=== PATIENT | female | born 1985 | race African-American/Black ===

== ENCOUNTER 2016-11-27 10:30 | Day surgery (SDC) | payer OTHER ==
[2016-11-27 11:03] VITALS: BMI 28.2
[2016-11-27 11:11] LABS: BASOPHIL 0.6 % (0-2.0); EOSINOPHIL 0.8 % (0-4.5); MCH 31.6 pg (25.7-33.7); MCHC 33.1 g/dl (32.0-36.0); MEAN CELL VOLUME 95.6 fl (80-96); MEAN PLT VOLUME 9.1 fl (7.5-11.1); NEUTROPHILS 61.6 % (42.8-82.8); PLATELET COUNT 184 K/MM3 (134-434); RDW 13.4 % (11.6-15.6); WHITE BLOOD COUNT 5.3 K/mm3 (4.0-10.0)
[2016-11-27 11:33] LABS: INR 1.14 (0.82-1.09); PROTHROMBIN TIME (PATIENT) 12.6 SEC (9.98-11.88)
[2016-11-27] MEDS ORDERED: HYDROmorphone *PCA* 10MG/50ML DISP.SYRIN PCA ONE (15:47)
[2016-11-27] MEDS ORDERED: LEUCOVORIN IM ONE (19:15)
--- NOTE | 2016-11-27 21:38 | PN ---
Progress Note (short form) - Note Progress Note: 31 yo P0 with at EGA 7w4d found to have a cervical ectopic . Pt is being treated with IM MTX/leucovorin. She is also s/p uterine artery embolization by interventional radiology. Pt received Luecovorin injection today Last Vital Signs Temp Pulse Resp BP Pulse Ox 97.9 F 90 20 121/76 100 11/27/16 18:31 11/27/16 18:31 11/27/16 18:31 11/27/16 18:31 11/27/16 17:00 Lungs: CTA b/l Abdom: soft, NT Groin: IR site with dressing clean, dry, intact Ext: normal pulses b/l Pelvic: no vag bleeding Imp: Patient is doing well. 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 Plan to d/c home tomorrow in stable MTX again injection tomorrow.
[2016-11-28] MEDS ORDERED: ONDANSETRON 4 MG/2 ML VIAL IVPUSH PRN (00:38)
[2016-11-28] MEDS ORDERED: SODIUM CHLORIDE 1,000 ML IV SCH (00:45)
[2016-11-28] MEDS: HYDROmorphone *PCA* 10MG/50ML DISP.SYRIN PCA SCH ×2 (01:41→05:38)
[2016-11-28] MEDS ORDERED: ACETAMINOPHEN 325 MG TABLET (FP) PO PRN (08:54)
[2016-11-28] MEDS ORDERED: IBUPROFEN 600 MG TABLET (FP) PO PRN (08:54)
[2016-11-28 09:50] VITALS: BP 135/66; PULSE 60; TEMP 98
[2016-11-28] MEDS ORDERED: METHOTREXATE SODIUM/PF 25 MG/ML VIAL IM ONE (13:30)
--- NOTE | 2016-11-28 14:31 | PN ---
Progress Note (SOAP) - Subjective Chief Complaint: Cramps and light spotting History of Present Illness: S/p uterine artery embolization for cervical ectopic - Current Medications Current Medications: Active Medications Acetaminophen (Tylenol -) 650 mg PO Q4H PRN PRN Reason: PAIN Diphenhydramine HCl (Benadryl Injection -) 12.5 mg IVPUSH Q4H PRN Sodium Chloride (Normal Saline -) 1,000 mls @ 75 mls/hr IV ASDIR FLYNN Last Admin: 11/28/16 01:41 Dose: Not Given Ibuprofen (Motrin -) 600 mg PO Q6H PRN PRN Reason: PAIN - Objective Vital Signs: Vital Signs Temperature 98 F 11/28/16 09:49 Pulse Rate 60 11/28/16 09:52 Respiratory Rate 20 11/28/16 09:52 Blood Pressure 135/66 11/28/16 09:52 O2 Sat by Pulse Oximetry (%) 98 11/28/16 13:51 Constitutional: Yes: Well Nourished, No Distress, Calm Eyes: Yes: WNL, Conjunctiva Clear HENT: Yes: WNL, Atraumatic, Normocephalic Neck: Yes: WNL, Supple, Trachea Midline Cardiovascular: Yes: WNL, Regular Rate and Rhythm Respiratory: Yes: WNL, Regular, CTA Bilaterally Gastrointestinal: Yes: WNL, Normal Bowel Sounds, Soft Genitourinary: Yes: Other (spotting) Musculoskeletal: Yes: WNL Extremities: Yes: WNL Peripheral Pulses WNL: Yes Edema: No Integumentary: Yes: WNL, Other (rt groin dressing clean, dry, intact) Wound/Incision: Yes: Clean/Dry Neurological: Yes: WNL, Alert, Oriented ...Motor Strength: Yes: WNL Psychiatric: Yes: WNL, Alert, Oriented Labs Lab Results: CBC, BMP 11/27/16 10:42 Assessment/Plan Doing well after embolization. Will give planned dose of MTX today. Discharge to home. Instructions reviewed. F/u tomorrow with Dr. Palma and me next week.
== END 2016-11-28 15:24 | disposition home or self-care (01) ==
LOC: JASUSAT 10:30 → J8W 17:45 → JASUSAT 11-28 15:24
PROVIDERS: ATTEND Obstetrics & Gynecology
PROC: 04LE3DT Occlusion of Right Uterine Artery with Intraluminal Device, Percutaneous Approach (ICD-10-PCS; 2016-11-27)
PROC: 04LF3DU Occlusion of Left Uterine Artery with Intraluminal Device, Percutaneous Approach (ICD-10-PCS; principal; 2016-11-27 14:45)
DX: O00.80 Other ectopic pregnancy without intrauterine pregnancy (principal); Z3A.01 Less than 8 weeks gestation of pregnancy
CPT/HCPCS: 36415; 37243; 76937-TC; 85025; 85610; 94760; C1760; C1769; C1887; C1894; J9260

== ENCOUNTER 2016-12-14 06:02 | Day surgery (SDC) | payer OTHER ==
[2016-12-13 10:23] VITALS: BMI 28.2
[2016-12-14] MEDS ORDERED: PROPOFOL 20 ML ONE (07:55)
[2016-12-14] MEDS ORDERED: MIDAZOLAM HCL 2 MG/2 ML SINGLE DOSE VIAL ONE (07:56)
[2016-12-14] MEDS ORDERED: SUCCINYLCHOLINE CHLORIDE 200 MG/10 ML VIAL ONE (07:56)
--- NOTE | 2016-12-14 08:16 | HP ---
Past Medical History - Primary Care Physician PCP:: Stanislav Avila - Admission Chief Complaint: 31 yo with cervical ectopic admitted for D&C. History of Present Illness: Cervical ectopic at EGA 7w3d by sono, s/p uterine embolization and MTX treatment. 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: No: Alzheimer's, CVA, Dementia, Migraine, Multiple Sclerosis, Peripheral Neuropathy, Parkinson's, Seizure, Syncope, TIA, Vertigo, Other Cardiovascular: No: AFIB, Aneurysm, Aortic Insufficiency, Aortic Stenosis, CAD, CHF, Deep Vein Thrombosis, HTN, Hyperlipdemia, MS, Mitral Insufficiency, Mitral Stenosis, Murmur, Pulmonary Hypertension, Other Pulmonary: No: Asthma, Bronchitis, Cancer, COPD, O2 Dependent, Pneumonia, Previously Intubated, Pulmonary Embolus, Pulmonary Fibrosis, Sleep Apnea, Other Gastrointestinal: No: Ascites, Cancer, Constipation, Crohn's Disease, Diverticulitis, Diverticulosis, Esophageal Varices, Gastritis, GERD, GI Bleed, Hemorrhoids, Hiatal Hernia, Inflamatory Bowel Disease, Irritable Bowel Disease, Pancreatitis, Peptic Ulcer Disease, Ulcerative Colitis, Other Hepatobiliary: No: Cirrhosis, Cholelithiasis, Cholecystitis, Choledocholithiasis , Hepatitis A, Hepatitis B, Hepatitis C, Other Renal/: No: Renal Failure, Renal Inusuff, BPH, Cancer, Hematuria, Hemodialysis , Neurogenic Bladder, Renal Calculi, UTI, Other Reproductive: No: Ectopic , Endometriosis, Fibroids, PID, Polycystic Ovary Syndrome, Postmenopausal, Other ...: 1 ...Para: 0 Heme/Onc: Yes: Anemia Infectious Disease: No: AIDS, C-Diff, Herpes Zoster, HIV, MRSA, STD's, Tuberculosis, VREF, Other Psych: No: Addictions, Anxiety, Bipolar, Depression, Panic, Psychosis, Schizophrenia, Other Musculoskeletal: No: Bursitis, Chronic low back pain, Hemiparesis, Hemiplegia, Osteoarthritis, Paraplegia, Other Rheumatology: No: Fibromyalgia, Gout, Lupus, Rheumatoid Arthritis, Sarcoidosis, Vasculitis, Other ENT: No: Allergic Rhinitis, Sinusitis, Other Endocrine: No: Carrington's Disease, Sid's Disease, Diabetes Insipidus, Diabetes Mellitus, Hyperparathyroidism, Hyperthyroidism, Hypothyroidism, Osteopenia, SIADH, Other Dermatology: No: Basal Cell, Cellulitis, Eczema, Melanoma, Psoriasis, Squamous Cell, Other - Past Surgical History Past Surgical History: Yes: Appendectomy Hx Myomectomy: No Hx Transabdominal Cerclage: No - Smoking History Smoking history: Never smoked Have you smoked in the past 12 months: No - Alcohol/Substance Use Hx Alcohol Use: Yes (SOCIALLY) - Social History Usual Living Arrangement: Yes: With Spouse ADL: Independent History of Recent Travel: No Home Medications - Allergies Allergies/Adverse Reactions: Allergies Allergy/AdvReac Type Severity Reaction Status Date / Time No Known Drug Allergies Allergy Verified 12/14/16 07:15 pork derived (porcine) Allergy "HIVES" Verified 12/14/16 07:15 shellfish derived Allergy "HIVES" Verified 12/14/16 07:15 - Home Medications Home Medications: Ambulatory Orders NK [No Known Home Medication] 12/13/16 Family Disease History - Family Disease History Family History: Unremarkable Review of Systems - Review of Systems Constitutional: reports: No Symptoms Eyes: reports: No Symptoms HENT: reports: No Symptoms Neck: reports: No Symptoms Cardiovascular: reports: No Symptoms Respiratory: reports: No Symptoms Gastrointestinal: reports: No Symptoms Genitourinary: reports: No Symptoms Breasts: reports: No Symptoms Reported Musculoskeletal: reports: No Symptoms Integumentary: reports: No Symptoms Neurological: reports: No Symptoms Endocrine: reports: No Symptoms Hematology/Lymphatic: reports: No Symptoms Psychiatric: reports: No Symptoms Pain Intensity: 0 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 Vital Signs: Vital Signs Temperature 98.7 F 12/14/16 07:14 Pulse Rate 77 12/14/16 07:14 Respiratory Rate 20 12/14/16 07:14 Blood Pressure 125/75 12/14/16 07:14 O2 Sat by Pulse Oximetry (%) 100 12/14/16 07:04 Constitutional: Yes: Well Nourished, No Distress, Calm Eyes: Yes: WNL, Conjunctiva Clear HENT: Yes: WNL, Atraumatic, Normocephalic Neck: Yes: WNL, Supple, Trachea Midline Cardiovascular: Yes: WNL, Regular Rate and Rhythm Respiratory: Yes: WNL, Regular, CTA Bilaterally Gastrointestinal: Yes: WNL, Normal Bowel Sounds, Soft ...Rectal Exam: Yes: WNL Renal/: Yes: WNL Pelvis: Yes: WNL External Genitalia: Yes: Normal Internal Exam Deferred: No Vaginal Exam: Yes: Normal, Bleeding (light) Cervix: Yes: Normal Uterus: Yes: Normal, Anteverted Adnexa: Normal: Left, Right Breast(s): Yes: WNL Musculoskeletal: Yes: WNL Extremities: Yes: WNL Edema: No Integumentary: Yes: WNL Neurological: Yes: WNL, Alert, Oriented ...Motor Strength: WNL Psychiatric: Yes: WNL, Alert, Oriented Imaging - Results Ultrasound: Report Reviewed Assessment/Plan 31 yo with cervical ectopic admitted for D&C. Risks, benefits, alternatives of surgery were discussed with the patient. The risk of infection, scarring, hysterectomy, infertility, pain, etc were discussed. Pt verbalized her understanding and agreed.
[2016-12-14] MEDS ORDERED: ceFAZolin SODIUM 1 GM VIAL ONE (08:23)
[2016-12-14] MEDS ORDERED: KETOROLAC TROMETHAMINE 30 MG/1 ML VIAL ONE (08:23)
[2016-12-14] MEDS ORDERED: LIDOCAINE HCL/PF 2% SDV 5ML VIAL ONE (08:23)
[2016-12-14] MEDS ORDERED: DEXAMETHASONE SOD PHOSPHATE 4 MG/1 ML VIAL ONE (08:23)
[2016-12-14] MEDS ORDERED: ceFAZolin SODIUM 1 GM VIAL IVPB ONE (08:25)
[2016-12-14] MEDS ORDERED: ONDANSETRON 4 MG/2 ML VIAL IVPUSH PRN (08:46)
[2016-12-14] MEDS ORDERED: oxyCODONE HCL 5 MG TABLET PO PRN (08:46)
--- NOTE | 2016-12-14 08:57 | OP ---
Operative Note - Note: Operative Date: 12/14/16 Pre-Operative Diagnosis: Cervical ectopic Operation: suction, D&C Findings: Small cervical Post-Operative Diagnosis: Same as Pre-op Surgeon: Stanislav Avila Burr Filer: Shayan Mcduffie Anesthesiologist/PLACING JUDGE: Tj Lazaro Anesthesia: General Specimens Removed: POC Estimated Blood Loss (mls): 50 Blood Volume Replaced (mls): 0 Fluid Volume Replaced (mls): 600 Operative Report Dictated: Yes
[2016-12-14] MEDS ORDERED: LACTATED RINGERS SOLUTION 1,000 ML IV SCH (09:00)
[2016-12-14] MEDS ORDERED: ACETAMINOPHEN 325 MG TABLET (FP) PO PRN (09:01)
[2016-12-14] MEDS ORDERED: IBUPROFEN 600 MG TABLET (FP) PO PRN (09:01)
--- NOTE | 2016-12-14 09:56 | OP ---
DATE OF OPERATION: 12/14/2016 PREOPERATIVE DIAGNOSIS: Cervical ectopic . POSTOPERATIVE DIAGNOSIS: Cervical ectopic . PROCEDURE: Suction dilatation and curettage. PATHOLOGY: Products of conception. ANESTHESIA: General endotracheal. SURGEON: Stanislav Avila MD COURIER DRIVER: Shayan Mcduffie MD ESTIMATED BLOOD LOSS: 50 mL. IV FLUIDS: 600 mL. COMPLICATIONS: None. FINDINGS: Small intracervical . Empty uterine cavity. No complications. No retained products of conception. PROCEDURE: The patient was met preoperatively. Risks, benefits, alternatives of surgery were discussed in details. All questions were answered. The patient was then brought to the OR with IV running. She was placed on the surgical table in the supine position. General anesthesia was achieved without difficulties. The patient was then placed in a dorsal lithotomy position using adjustable Carlo stirrups. The patient was examined under anesthesia. The examination showed a small anteverted uterus, a small cervix without evidence of ballooning. The patient was then prepped and draped in the usual sterile fashion. A vaginal speculum was used to visualize the cervix. The cervix was grasped with a single-tooth tenaculum. The cervical os was dilated to accommodate size 23 Kumari dilator. A 7-mm curet was used to evacuate the cervical without complications. Gentle intrauterine suction curettage was also performed without complications. The tissue was submitted to Pathology for evaluation. Good hemostasis was noted. All of the instruments were removed from the patient. Sponge, lap, instrument counts were correct. The patient was transferred to the recovery room in stable condition and awake. Nella [id number]
[2016-12-14 10:32] VITALS: TEMP 98.1
[2016-12-14 12:14] VITALS: BP 110/64; PULSE 83
--- NOTE | 2016-12-17 12:23 | PATH ---
Surgical Pathology Report Patient Name: VISHNU GUADARRAMA [facility]. Rec. #: [id number] /Age/Gender: 1985 (Age: 31) / F Account: [id number] Location: [facility] [place] SUR[facility]ICAL Taken: 12/14/2016 Received: 12/14/2016 Reported: 12/17/2016 Physicians: Stanislav Avila M.D. Specimen(s) Received PRODUCTS OF CONCEPTION Clinical History Ectopic Final Diagnosis ----- PRODUCTS OF CONCEPTION: SOMATIC TISSUE IDENTIFIED (NUCLEATED RED BLOOD CELLS). CHORIONIC VILLI PRESENT, PARTIALLY FIBROTIC. FRAGMENTS OF NECROTIC DECIDUA. ___ Electronically Signed Lazaro Giles M.D. Gross Description Received in formalin, labeled "products of conception" is a 5 x 5 x 0.5 cm in dimension multiple fragments of wynn and red tissue. Possible chorionic villi are seen. Heating Plant Superintendent sections submitted two cassettes. AF/12/14/2016 final/12/14/2016
== END 2016-12-14 11:30 | disposition home or self-care (01) ==
LOC: JASU-SURG 06:02
PROVIDERS: ATTEND Obstetrics & Gynecology
PROC: 10D27ZZ Extraction of Products of Conception, Ectopic, Via Natural or Artificial Opening (ICD-10-PCS; principal; 2016-12-14 08:00)
DX: O00.80 Other ectopic pregnancy without intrauterine pregnancy (principal)
CPT/HCPCS: 86900; 86901; 88305-TC; 94760

== ENCOUNTER 2018-02-10 14:09 | Emergency (ER) | payer OTHER ==
[2018-02-10] MEDS ORDERED: ACETAMINOPHEN 325 MG TABLET (FP) PO ONE (14:14)
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
[2018-02-10 14:16] VITALS: BP 140/83; PULSE 110; TEMP 98.3; BMI 27.4
[2018-02-10 15:00] LABS: BASO % 0.4 % (0-2.0); EOS % 0.7 % (0-4.5); HEMATOCRIT 37.9 % (32.4-45.2); HEMOGLOBIN 12.9 GM/dL (10.7-15.3); LYMPH % 21.1 % (8-40); MCH 32.4 pg (25.7-33.7); MCHC 34.1 g/dl (32.0-36.0); MEAN CELL VOLUME 95.2 fl (80-96); MEAN PLT VOLUME 8.6 fl (7.5-11.1); MONO % 7.7 % (3.8-10.2); NEUT % 70.1 % (42.8-82.8); PLATELET COUNT 220 K/MM3 (134-434); RBC 3.98 M/mm3 (3.60-5.2); RDW 13.5 % (11.6-15.6); WHITE BLOOD COUNT 6.4 K/mm3 (4.0-10.0)
[2018-02-10 15:02] LABS: URINE APPEARANCE SLCLOUDY; URINE BILIRUBIN NEGATIVE (<2.0 mg/dL); URINE COLOR YELLOW; URINE GLUCOSE (UA) NEGATIVE (NEGATIVE); URINE KETONE 1+ (NEGATIVE); URINE LEUK ESTERASE NEGATIVE (NEGATIVE); URINE NITRITE NEGATIVE (NEGATIVE); URINE UROBILINOGEN NEGATIVE mg/dL (0.2-1.0)
[2018-02-10 15:10] LABS: ALBUMIN 3.2 g/dl (3.4-5.0); ANION GAP 7 (8-16); BLOOD UREA NITROGEN 5 mg/dL (7-18); CALCIUM 8.7 mg/dL (8.5-10.1); CHLORIDE 105 mmol/L (98-107); CO2 26 mmol/L (21-32); CREATININE 0.7 mg/dL (0.55-1.02); GLUCOSE,RANDOM 118 mg/dL (74-106); POTASSIUM 4.1 mmol/L (3.5-5.1); SGOT/AST 12 U/L (15-37); SGPT/ALT 13 U/L (12-78); SODIUM 138 mmol/L (136-145)
[2018-02-10 15:26] LABS: ALK PHOS 51 U/L (45-117); BILIRUBIN,TOTAL 0.4 mg/dL (0.2-1.0); TOT PROT 6.6 g/dl (6.4-8.2)
[2018-02-10 15:36] LABS: URINE PROTEIN 2+ (NEGATIVE)
[2018-02-10 15:55] LABS: EPI CELLS RARE /HPF (FEW); URINE BACTERIA RARE /hpf (NONE SEEN); URINE MUCUS RARE
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
== END 2018-02-10 18:02 | disposition home or self-care (01) ==
LOC: JER 14:09
DX: O26.891 Other specified pregnancy related conditions, first trimester (principal); Z3A.12 12 weeks gestation of pregnancy; V49.9XXA Car occupant (driver) (passenger) injured in unspecified traffic accident, initial encounter; W22.12XA Striking against or struck by front passenger side automobile airbag, initial encounter; Y92.488 Other paved roadways as the place of occurrence of the external cause; Y93.89 Activity, other specified; Y99.8 Other external cause status
CPT/HCPCS: 36415; 76801-TC; 80053; 81003; 81015; 84702; 85025; 86850; 86870; 86900; 86901; 86902; 99281-25

== ENCOUNTER 2018-08-25 19:00 | Inpatient (IN) | payer OTHER ==
[2018-08-25] MEDS: DEXTROSE 5%-LACTATED RINGERS 1,000 ML IV SCH (20:00)
[2018-08-25 20:32] LABS: BASO % 0.4 % (0-2.0); EOS % 0.5 % (0-4.5); HEMATOCRIT 36.4 % (32.4-45.2); HEMOGLOBIN 12.6 GM/dL (10.7-15.3); LYMPH % 30.3 % (8-40); MCH 32.3 pg (25.7-33.7); MCHC 34.8 g/dl (32.0-36.0); MEAN CELL VOLUME 92.8 fl (80-96); MEAN PLT VOLUME 10.5 fl (7.5-11.1); MONO % 8.9 % (3.8-10.2); NEUT % 59.9 % (42.8-82.8); RBC 3.92 M/mm3 (3.60-5.2); RDW 14.5 % (11.6-15.6); RETICULOCYTES 1.71 % (0.5-1.5); WHITE BLOOD COUNT 5.6 K/mm3 (4.0-10.0)
[2018-08-25 20:36] LABS: URINE APPEARANCE CLEAR; URINE BILIRUBIN NEGATIVE (<2.0 mg/dL); URINE COLOR STRAW; URINE GLUCOSE (UA) NEGATIVE (NEGATIVE); URINE KETONE NEGATIVE (NEGATIVE); URINE LEUK ESTERASE NEGATIVE (NEGATIVE); URINE NITRITE NEGATIVE (NEGATIVE); URINE PROTEIN 1+ (NEGATIVE); URINE UROBILINOGEN NEGATIVE mg/dL (0.2-1.0)
[2018-08-25 20:44] LABS: INR 0.89 (0.83-1.09); PROTHROMBIN TIME (PATIENT) 10.5 SEC (9.7-13.0)
[2018-08-25 20:46] LABS: ACTIVATED PTT 25.5 SECONDS (25.2-36.5)
[2018-08-25 20:59] LABS: EPI CELLS FEW /HPF (FEW); URINE BACTERIA MANY /hpf (NONE SEEN); URINE MUCUS RARE
[2018-08-25 21:01] LABS: ANION GAP 9 MMOL/L (8-16); BLOOD UREA NITROGEN 7 mg/dL (7-18); CALCIUM 8.6 mg/dL (8.5-10.1); CHLORIDE 106 mmol/L (98-107); CO2 24 mmol/L (21-32); CREATININE 0.8 mg/dL (0.55-1.3); GLUCOSE,RANDOM 96 mg/dL (74-106); POTASSIUM 3.9 mmol/L (3.5-5.1); SGOT/AST 22 U/L (15-37); SGPT/ALT 18 U/L (13-61); SODIUM 139 mmol/L (136-145); URIC ACID 6.7 mg/dL (2.6-7.2)
[2018-08-25 21:16] LABS: PLATELET COUNT 140 K/MM3 (134-434)
[2018-08-25 21:17] LABS: PLATELET ESTIMATE DECREASED
[2018-08-25] MEDS ORDERED: TUBERCULIN PPD 5 TU/0.1ML SYRINGE (IN PATIENT USE ONLY) ID ONE (21:45)
--- NOTE | 2018-08-25 21:50 | HP ---
Past Medical History - Primary Care Physician PCP:: Isha Johnson - Admission Chief Complaint: 33yo P0 @ 40.2wks with oligohydramnious, induced hypertension,. +FM, no VB, no LOF, no contructions, for Induction of labor. denies Headache, RUQ pain, or visual changes History of Present Illness: 1. Rh neg - s/p RhoGam 06/05/18 2. AMA - Inheritest neg 3. h/o Cervical Ectopic - s/p MTX and D&C 2016 4. Elevated BPs since 07/30/18, 24hr UA c/w 1+, assymptomatic for PEC, Plt = 140 , will repeat History Source: Patient, Medical Record Limitations to Obtaining History: No Limitations - Past Medical History Reproductive: Yes: Polycystic Ovary Syndrome ...: 2 ...Para: 0 ...EDC by Sono: 08/23/18 Additional OB History: Cervical Ectopic 12/14/16 treated with MTX and D&C Heme/Onc: Yes: Anemia - Past Surgical History Past Surgical History: Yes: Appendectomy Hx Myomectomy: No Hx Transabdominal Cerclage: No Additional Surgical History: D&C - Smoking History Smoking history: Never smoked Have you smoked in the past 12 months: No - Alcohol/Substance Use Hx Alcohol Use: Yes (SOCIALLY) - Social History ADL: Independent History of Recent Travel: No Home Medications - Allergies Allergies/Adverse Reactions: Allergies Allergy/AdvReac Type Severity Reaction Status Date / Time No Known Drug Allergies Allergy Verified 08/25/18 21:18 pork derived (porcine) Allergy Hives Verified 08/25/18 21:18 shellfish derived Allergy Hives Verified 08/25/18 21:18 - Home Medications Home Medications: Ambulatory Orders Pnv No.95/Ferrous Fum/Folic AC [ Vitamin Tablet] 1 each PO DAILY Review of Systems - Review of Systems Constitutional: reports: No Symptoms Eyes: reports: No Symptoms HENT: reports: No Symptoms Neck: reports: No Symptoms Cardiovascular: reports: No Symptoms Respiratory: reports: No Symptoms Gastrointestinal: reports: No Symptoms Genitourinary: reports: No Symptoms Breasts: reports: No Symptoms Reported Musculoskeletal: reports: No Symptoms Integumentary: reports: No Symptoms Neurological: reports: No Symptoms Endocrine: reports: No Symptoms Hematology/Lymphatic: reports: No Symptoms Psychiatric: reports: No Symptoms Physical Exam - Maternity Vital Signs: Vital Signs Temperature Pulse Rate 71 08/25/18 21:00 Respiratory Rate 20 08/25/18 21:00 Blood Pressure 145/93 08/25/18 21:00 O2 Sat by Pulse Oximetry (%) Constitutional: Yes: Well Nourished, No Distress, Calm HENT: Yes: WNL, Atraumatic, Normocephalic Neck: Yes: WNL, Supple, Trachea Midline Cardiovascular: Yes: WNL, Regular Rate and Rhythm Lungs: Clear to auscultation Breast(s): Yes: WNL - Abdominal Exam/OB Fundal Height: 40 Number of Fetuses: Single Presentation: Vertex Contractions: No Monitor Mode: External Heart Rate (range): 130"s Heart Rate Location: Midline Category: I Accelerations: Uniform Decelerations: None - Vaginal Exam/OB Vaginal Bleediing: No Dilatation (cm): 1 Effacement (%): 50 Amniotic Membrane Status: Intact Presentation: Vertex/Position Station: -4 - Physical Exam Musculoskeletal: Yes: WNL Extremities: Yes: WNL Edema: No Integumentary: Yes: WNL ...Motor Strength: WNL Psychiatric: Yes: WNL, Alert, Oriented - Labs Lab Results: CBC, BMP 08/25/18 20:05 08/25/18 20:05 Assessment/Plan 33yo P0 @ 40.2 wks with Oligohydramnious, induced HTN vs. mild preeclampsia Admited for labor induction We had long discussion re: risks, benefits, and alternatives of labor induction. I explained the options of expectant management awaiting spontaneous labor, induction of labor, and elective section. The risks of uterine tachysystole, distress, uterine rupture, need for emergency C/S, hemorrhage, infection, scarring, etc. were discussed. We also discussed the risks of meconium aspiration, shoulder dystocia, and anesthesia options. The pt requested to proceed with induction. We discussed the alternative methods of induction with Cervidil, Cytotec, Folley ballon, and pitocin. The pt prefers starting Cervidil GBS neg - no need for GBS Prophylaxis Platelet count is low range - will repeat count in 4 hs, monitor BP Q 30min, if worsening markers, consider MGSo4 for seizure prophylaxis Pain management discussed will offer IV meds in early labor and Epidural in active labor.
[2018-08-25 22:00] VITALS: BMI 30.3
[2018-08-25] MEDS ORDERED: BUTORPHANOL TARTRATE 1 MG/ML VIAL IVPUSH ONE (22:09)
[2018-08-25] MEDS ORDERED: PROMETHAZINE HCL 25 MG/1 ML VIAL IVPB ONE (22:09)
[2018-08-25] MEDS ORDERED: DINOPROSTONE 10 MG VAGINAL SUPPOSITORY VG ONE (23:15)
[2018-08-26 00:27] LABS: HEMATOCRIT 35.8 % (32.4-45.2); HEMOGLOBIN 12.4 GM/dL (10.7-15.3); MCH 32.5 pg (25.7-33.7); MCHC 34.8 g/dl (32.0-36.0); MEAN CELL VOLUME 93.6 fl (80-96); MEAN PLT VOLUME 10.1 fl (7.5-11.1); PLATELET COUNT 142 K/MM3 (134-434); RBC 3.83 M/mm3 (3.60-5.2); RDW 14.6 % (11.6-15.6); WHITE BLOOD COUNT 6.5 K/mm3 (4.0-10.0)
[2018-08-26 00:50] LABS: ALBUMIN 2.6 g/dl (3.4-5.0); ALK PHOS 288 U/L (45-117); ANION GAP 8 MMOL/L (8-16); BILIRUBIN,DIRECT 0.1 mg/dL (0.0-0.2); BILIRUBIN,TOTAL 0.3 mg/dL (0.2-1); BLOOD UREA NITROGEN 6 mg/dL (7-18); CALCIUM 8.7 mg/dL (8.5-10.1); CHLORIDE 106 mmol/L (98-107); CO2 25 mmol/L (21-32); CREATININE 0.8 mg/dL (0.55-1.3); GLUCOSE,RANDOM 81 mg/dL (74-106); POTASSIUM 3.9 mmol/L (3.5-5.1); SGOT/AST 28 U/L (15-37); SGPT/ALT 18 U/L (13-61); SODIUM 139 mmol/L (136-145); TOT PROT 5.9 g/dl (6.4-8.2)
[2018-08-26] MEDS: DEXTROSE 5%-LACTATED RINGERS 1,000 ML IV SCH (02:35)
[2018-08-26] MEDS ORDERED: FENTANYL/BUPIVACAINE/NS/PF - PCEA - 50 ML DISP.SYRIN EP ONE ×2 (05:29→10:32)
[2018-08-26] MEDS ORDERED: NALOXONE HCL 0.4 MG/ML VIAL IVPUSH PRN (06:34)
[2018-08-26] MEDS ORDERED: FENTANYL/BUPIVACAINE/NS/PF - PCEA - 50 ML DISP.SYRIN EP SCH (06:45)
--- NOTE | 2018-08-26 09:26 | PN ---
Progress Note, Labor Vaginal Exam #1 Labor Exam Date: 08/26/18 Labor Exam Time: 08:30
[2018-08-26] MEDS ORDERED: TERBUTALINE SULFATE 1 MG/1 ML VIAL SQ ONE ×2 (10:50→10:53)
[2018-08-26] MEDS ORDERED: CITRIC ACID/SODIUM CITRATE 30 ML UNIT-DOSE CUP PO ONE (11:05)
[2018-08-26] MEDS ORDERED: LIDO 2%/EPI 1:200000 PRESRVFRE (20 ML SDVIAL) ONE (11:24)
[2018-08-26 12:29] LABS: ARTERIAL BLD GAS O2 SATURATION 2.9 % (90-98.9); ARTERIAL BLOOD GAS BASE EXCESS -13.1 meq/l (-2-2); ARTERIAL BLOOD GAS PCO2 81.3 mmHg (35-45); ARTERIAL BLOOD GAS PO2 5.8 mmHg (80-100); ARTERIAL BLOOD GAS pH 7.02 (7.35-7.45)
[2018-08-26 12:45] LABS: VENOUS PC02 66.7 mmHg (38-52); VENOUS PH 7.09 (7.32-7.42); VENOUS PO2 18.3 mmHg (28-48)
--- NOTE | 2018-08-26 12:49 | OP ---
Operative Note - Note: Operative Date: 08/26/18 Pre-Operative Diagnosis: 33yo P0 @ 40.3wks with Category 3 FHR, remote from delivery Operation: Primary c/section Findings: 1. Viable female, APGARs 1/8 2. Thick Meconium 3. Normal tubes and ovaries bl Surgeon: Isha Johnson Fur Stretcher: Chon Sears Anesthesiologist/BICYCLE FITTER: Tracy Bajwa Anesthesia: Epidural Estimated Blood Loss (mls): 600 Drains, Volume Out (mls): 200 Fluid Volume Replaced (mls): 2,000 Operative Report Dictated: Yes
[2018-08-26] MEDS ORDERED: OXYTOCIN 20 UNITS in 0.9% NS 20 UNIT/1,000 ML INFUS.BAG IV ONE (12:55)
[2018-08-26] MEDS ORDERED: ONDANSETRON 4 MG/2 ML VIAL IVPUSH PRN (13:05)
[2018-08-26] MEDS ORDERED: IBUPROFEN 600 MG TABLET (FP) PO PRN (13:05)
--- NOTE | 2018-08-26 13:05 | PN ---
Delivery - Delivery Section: Primary Type of Anesthesia: Epidural EBL (cc): 600 Delivery, Single - Stages of Labor Date 1st Stage Initiatied: 08/26/18 Date 2nd Stage Initiated: 08/26/18 Date of Delivery: 08/26/18 Time of Delivery: 11:50 Date Placenta Delivered: 08/26/18 Time Placenta Delivered: 11:52 Placenta: Yes: Expressed - Condition of Infant Securities Dealer/Systems Analyst Present: Yes Name: Aron Jean Gender: Female Position: Left, OT Total Hours ROM (Hrs/Mins): 3 hours - 1 Minute Total Score: 1 5 Minutes Total Score: 8 - Feeding Plan Initial Plan: Elected not to breastfeed exclusively throughout hospitalization Benefits of Exclusively reinforced: Yes Remarks - Remarks Remarks: Category 3 FHR with repetitive variable and late FHR decelarations, no change in cervical dilation in 3 hours no response to amnioinfusion, O2 by face mask, terbutaline c/section called @ 11:10am in the operating room at 11:33am, incision at 11:44 , baby delivered at 11:50 Neonatalogist present
[2018-08-26] MEDS ORDERED: BENZOCAINE 28 GM HEMORRHOIDAL OINTMENT PR PRN (13:10)
[2018-08-26] MEDS ORDERED: WITCH HAZEL 50% (TUCKS) 40 PAD/JAR PAD TP PRN (13:10)
[2018-08-26] MEDS ORDERED: METHYLERGONOVINE MALEATE 0.2 MG/1 ML AMP IM PRN (13:10)
[2018-08-26] MEDS ORDERED: oxyCODONE HCL 5 MG TABLET PO PRN ×2 (13:10)
[2018-08-26] MEDS ORDERED: IBUPROFEN 800 MG/8 ML IJ IVPB PRN (13:10)
[2018-08-26] MEDS ORDERED: BENZOCAINE 20% 57 GM BOTTLE TP PRN (13:10)
[2018-08-26] MEDS ORDERED: diphenhydrAMINE HCL 25 MG CAPSULE (FP) PO PRN (13:10)
[2018-08-26] MEDS ORDERED: DEXTROSE 5%-LACTATED RINGERS 1,000 ML IV SCH (13:15)
[2018-08-26] MEDS ORDERED: OXYTOCIN 20 UNITS in 0.9% NS 20 UNIT/1,000 ML INFUS.BAG IV SCH (13:15)
[2018-08-26] MEDS ORDERED: NIFEdipine 10 MG CAPSULE (FP) ONE ×2 (14:19→14:21)
[2018-08-26] MEDS: NIFEdipine E.R. 30 MG TABLET (FP) PO SCH (14:30)
--- NOTE | 2018-08-26 15:54 | OP ---
DATE OF OPERATION: 08/26/2018 POSTOPERATIVE DIAGNOSIS: A 33-year-old para 0 at 40 and 3/7 weeks with category 3 heart race remote from delivery. OPERATION: Primary section. SURGEON: Isha Johnson MD PUBLIC HEALTH ENGINEER: Chon Sears MD ANESTHESIOLOGIST: Tracy Bajwa MD ANESTHESIA: Epidural. DESCRIPTION OF PROCEDURE: After assuring informed consent, patient was brought to the operating room and placed in the supine position with left lateral tilt. Abdomen was prepped and draped in sterile fashion. Pfannenstiel skin incision was performed with a scalpel, carried down to the level of fascia with Bovie cautery. The fascia was incised with Bovie cautery and dissected bilaterally with good visualization of underlying muscle. Fascia was dissected off the rectus abdominis muscle with Bovie cautery. Muscle was splint in the midline. Peritoneum identified, tinted, and entered bluntly. Peritoneal incision was extended superiorly and inferiorly with Bovie cautery with good visualization of underlying structures. Bowel blade was used to retract the bladder. The vesicouterine peritoneum was tinted and dissected off the anterior wall of the uterus. Bladder flap was created and retracted with the Kelly. Lower uterine segment incision was created with a scalpel and extended bilaterally bluntly. 's head was delivered atraumatically. Copious amount of meconium-stained amniotic fluid was visualized. Infant's rest of the body was delivered atraumatically in left OT presentation. Cord was clamped and cut. was handed to awaiting neonatology and was suctioned upon delivery. Cord was handed for pH gases. The placenta was expressed manually. Uterus was cleared of clots and debris and repaired with 0 Biosyn in running locking fashion. The second uterine suture was placed imbricating the initial primary suture with 0 Biosyn. The peritoneum was irrigated with normal saline. Normal tubes and ovaries were noted bilaterally. The peritoneum was sutured with 0 Biosyn. Subsequently, the rectus abdominis muscle was reapproximated at the midline. The fascia was closed with 0 Vicryl in running fashion. The subcutaneous space was closed with 0 Vicryl in interrupted fashion. The skin was closed with 4-0 Biosyn in a subcuticular fashion. Excellent hemostasis was achieved throughout. Estimated blood loss was 600 mL. Patient urinated in the Burns catheter 200 mL and received 2000 mL in IV fluids. The sponge and instrument count was correct x2. Patient was brought to the recovery room in stable condition. Nella [id number]
[2018-08-26] MEDS ORDERED: ceFAZolin SODIUM 1 GM VIAL ONE (17:21)
[2018-08-26] MEDS ORDERED: DEXTROSE 5%-WATER - 50 ML IVPB ONE (17:21)
[2018-08-26] MEDS: CEFAZOLIN 1 GM in DEXTROSE 5%-WATER - 50 ML IVPB SCH (17:26)
[2018-08-27] MEDS: CEFAZOLIN 1 GM in DEXTROSE 5%-WATER - 50 ML IVPB SCH (02:03)
--- NOTE | 2018-08-27 08:12 | PN ---
Post Progress Note Type of Delivery: Primary C/S Vital Signs: Vital Signs Temperature 98.4 F 08/27/18 06:00 Pulse Rate 70 08/27/18 06:00 Respiratory Rate 20 08/27/18 06:00 Blood Pressure 133/78 08/27/18 06:00 O2 Sat by Pulse Oximetry (%) 100 08/26/18 11:15 Breast Exam: Yes: Soft Uterus: Yes: Fundus Firm, Fundus below umbilicus, Non-tender Incision: Yes: Dressing dry and intact Abdomen/GI: Yes: Abdomen soft Lochia: Yes: Rubra Lochia, amount: Small Extremities: Yes: Calves non-tender Perineum: Yes: Intact Activity: Ambulating - Labs Labs: CBC WBC 6.5 K/mm3 (4.0-10.0) 08/26/18 00:15 RBC 3.83 M/mm3 (3.60-5.2) 08/26/18 00:15 Hgb 12.4 GM/dL (10.7-15.3) 08/26/18 00:15 Hct 35.8 % (32.4-45.2) 08/26/18 00:15 MCV 93.6 fl (80-96) 08/26/18 00:15 MCH 32.5 pg (25.7-33.7) 08/26/18 00:15 MCHC 34.8 g/dl (32.0-36.0) 08/26/18 00:15 RDW 14.6 % (11.6-15.6) 08/26/18 00:15 Plt Count 142 K/MM3 (134-434) 08/26/18 00:15 MPV 10.1 fl (7.5-11.1) 08/26/18 00:15 Absolute Neuts (auto) 3.4 K/mm3 (1.5-8.0) 08/25/18 20:05 Neutrophils % 59.9 % (42.8-82.8) 08/25/18 20:05 Lymphocytes % 30.3 % (8-40) D 08/25/18 20:05 Monocytes % 8.9 % (3.8-10.2) 08/25/18 20:05 Eosinophils % 0.5 % (0-4.5) 08/25/18 20:05 Basophils % 0.4 % (0-2.0) 08/25/18 20:05 Nucleated RBC % 0 % (0-0) 08/25/18 20:05 Platelet Estimate Decreased 08/25/18 20:05 Platelet Comment Giant platelets 08/25/18 20:05 Retic Count 1.71 % (0.5-1.5) H 08/25/18 20:05 Haptoglobin 91 mg/dL (34-200) 08/25/18 20:05 Assessment/Plan 33yo P1 s/p primary LT C/S. Doing well, stable, afebrile. Plan to f/u labs Ambulation encouraged Advance diet as tolerated F/u labs Continue routine postop care.
[2018-08-27 08:13] LABS: BASO % 0.3 % (0-2.0); EOS % 0.1 % (0-4.5); HEMATOCRIT 36.6 % (32.4-45.2); HEMOGLOBIN 12.8 GM/dL (10.7-15.3); LYMPH % 20.1 % (8-40); MCH 32.9 pg (25.7-33.7); MCHC 34.8 g/dl (32.0-36.0); MEAN CELL VOLUME 94.4 fl (80-96); MONO % 7.7 % (3.8-10.2); NEUT % 71.8 % (42.8-82.8); PLATELET COUNT 149 K/MM3 (134-434); RBC 3.88 M/mm3 (3.60-5.2); RDW 14.9 % (11.6-15.6); WHITE BLOOD COUNT 11.7 K/mm3 (4.0-10.0)
[2018-08-27] MEDS: ENOXAPARIN NA (PORCINE) 40 MG/0.4 ML DISP.SYRIN SQ SCH (09:13)
[2018-08-27 09:37] LABS: ALBUMIN 2.2 g/dl (3.4-5.0); ALK PHOS 246 U/L (45-117); ANION GAP 7 MMOL/L (8-16); BILIRUBIN,DIRECT 0.2 mg/dL (0.0-0.2); BILIRUBIN,TOTAL 0.6 mg/dL (0.2-1); BLOOD UREA NITROGEN 10 mg/dL (7-18); CHLORIDE 105 mmol/L (98-107); CO2 26 mmol/L (21-32); CREATININE 0.9 mg/dL (0.55-1.3); GLUCOSE,RANDOM 59 mg/dL (74-106); POTASSIUM 3.8 mmol/L (3.5-5.1); SGOT/AST 35 U/L (15-37); SGPT/ALT 17 U/L (13-61); SODIUM 138 mmol/L (136-145); TOT PROT 5.3 g/dl (6.4-8.2)
[2018-08-27] MEDS: SIMETHICONE 80 MG TAB.CHEW (FP) PO PRN (12:10)
[2018-08-27] MEDS: ACETAMINOPHEN 325 MG TABLET (FP) PO PRN (12:10)
[2018-08-27] MEDS: IBUPROFEN 600 MG TABLET (FP) PO PRN (12:11)
[2018-08-27] MEDS ORDERED: BISACODYL 10 MG SUPP.RECT RC PRN (13:10)
--- NOTE | 2018-08-27 13:44 | PN ---
Progress Note, Physician Chief Complaint: day 1 s/p c/s - Current Medication List Current Medications: Active Medications Acetaminophen (Tylenol -) 650 mg PO Q4H PRN PRN Reason: PAIN LEVEL 6-10 Last Admin: 08/27/18 12:10 Dose: 650 mg Benzocaine (Americaine 20% [place] -) 1 spray TP PRN PRN PRN Reason: Pain - Topical Benzocaine (Americaine Ointment -) 1 applic SD PRN PRN PRN Reason: Pain - Topical Bisacodyl (Dulcolax Suppository -) 10 mg RC PRN PRN PRN Reason: CONSTIPATION Diphenhydramine HCl (Benadryl Injection -) 25 mg IVPUSH Q4H PRN PRN Reason: Pruritis Diphenhydramine HCl (Benadryl -) 25 mg PO Q8H PRN PRN Reason: FOR ITCHING Enoxaparin Sodium (Lovenox -) 40 mg SQ DAILY [facility] Last Admin: 08/27/18 09:13 Dose: 40 mg Dextrose/Lactated Ringer's (D5-Lr -) 1,000 mls @ 125 mls/hr IV ASDIR [facility] Last Admin: 08/26/18 16:00 Dose: Not Given Ibuprofen (Motrin -) 600 mg PO Q4H PRN PRN Reason: PAIN LEVEL 1 - 3 Last Admin: 08/27/18 12:11 Dose: 600 mg Ibuprofen (Caldolor Injection -) 800 mg IVPB Q6H PRN PRN Reason: PAIN > 5 if PO not effective. Methylergonovine Maleate (Methergine Injection -) 0.2 mg IM Q4H PRN PRN Reason: EXCESSIVE BLEEDING Naloxone HCl (Narcan -) 0.4 mg IVPUSH PRN PRN PRN Reason: Sedation Nifedipine (Procardia Xl -) 30 mg PO DAILY [facility] Last Admin: 08/26/18 14:30 Dose: 30 mg Ondansetron HCl (Zofran Injection) 4 mg IVPUSH Q4H PRN PRN Reason: NAUSEA Oxycodone HCl (Roxicodone -) 10 mg PO Q4H PRN PRN Reason: PAIN LEVEL 7 - 10 Stop: 08/29/18 17:00 Senna/Docusate Sodium (Pericolace -) 2 tablet PO HS PRN PRN Reason: CONSTIPATION Simethicone (Mylicon -) 80 mg PO Q4H PRN PRN Reason: GAS Last Admin: 08/27/18 12:10 Dose: 80 mg Witch Amber/Glycerin (Tucks Pads -) 1 pad TP PRN PRN PRN Reason: Pain - Topical - Objective Vital Signs: Vital Signs Temperature 97.9 F 08/27/18 08:51 Pulse Rate 83 08/27/18 08:51 Respiratory Rate 20 08/27/18 11:00 Blood Pressure 124/77 08/27/18 08:51 O2 Sat by Pulse Oximetry (%) 100 08/26/18 11:15 Labs: CBC, BMP 08/27/18 07:10 08/27/18 07:10 INR, PTT INR 0.89 (0.83-1.09) 08/25/18 20:05 Assessment/Plan doing well s/p C/S. Received episural duramorph. Pain well controllled; no GRANADOS or back pain, no other anesthetic issues/complications.
[2018-08-27] MEDS: NIFEdipine E.R. 30 MG TABLET (FP) PO SCH (14:04)
[2018-08-28] MEDS: SIMETHICONE 80 MG TAB.CHEW (FP) PO PRN ×3 (04:23→21:40)
[2018-08-28] MEDS: ACETAMINOPHEN 325 MG TABLET (FP) PO PRN ×3 (04:24→21:41)
--- NOTE | 2018-08-28 06:23 | PN ---
Post Progress Note - Subjective Subjective: Patient without acute complaints. Reports tolerating oral intake without nausea or vomiting. Ambulating without dizziness. Denies fevers or chills. Pain well controlled with oral pain medication. without difficulty. Passing flatus. Post Day: 2 Type of Delivery: Primary C/S Vital Signs: Vital Signs Temperature 98.6 F 08/27/18 22:00 Pulse Rate 74 08/28/18 04:33 Respiratory Rate 18 08/28/18 04:33 Blood Pressure 132/85 08/28/18 04:33 O2 Sat by Pulse Oximetry (%) 100 08/26/18 11:15 Uterus: Yes: Fundus Firm, Fundus below umbilicus Incision: Yes: Dressing dry and intact, Oozing Abdomen/GI: Yes: Abdomen soft, Tender (mild incisional), Passing flatus, Tolerating PO. No: Abdominal Distention Lochia: Yes: Serosa Lochia, amount: Moderate Extremities: Yes: Calves non-tender. No: Edema Activity: Ambulating - Labs Labs: CBC WBC 11.7 K/mm3 (4.0-10.0) H 08/27/18 07:10 RBC 3.88 M/mm3 (3.60-5.2) 08/27/18 07:10 Hgb 12.8 GM/dL (10.7-15.3) 08/27/18 07:10 Hct 36.6 % (32.4-45.2) 08/27/18 07:10 MCV 94.4 fl (80-96) 08/27/18 07:10 MCH 32.9 pg (25.7-33.7) 08/27/18 07:10 MCHC 34.8 g/dl (32.0-36.0) 08/27/18 07:10 RDW 14.9 % (11.6-15.6) 08/27/18 07:10 Plt Count 149 K/MM3 (134-434) 08/27/18 07:10 MPV 10.0 fl (7.5-11.1) 08/27/18 07:10 Absolute Neuts (auto) 8.4 K/mm3 (1.5-8.0) H 08/27/18 07:10 Neutrophils % 71.8 % (42.8-82.8) 08/27/18 07:10 Lymphocytes % 20.1 % (8-40) D 08/27/18 07:10 Monocytes % 7.7 % (3.8-10.2) 08/27/18 07:10 Eosinophils % 0.1 % (0-4.5) 08/27/18 07:10 Basophils % 0.3 % (0-2.0) 08/27/18 07:10 Nucleated RBC % 0 % (0-0) 08/27/18 07:10 Platelet Estimate Decreased 08/25/18 20:05 Platelet Comment Giant platelets 08/25/18 20:05 Retic Count 1.71 % (0.5-1.5) H 08/25/18 20:05 Haptoglobin 91 mg/dL (34-200) 08/25/18 20:05 Assessment/Plan 33 yo POD # 2 s/p primary CD, afebrile, vital signs stable, doing well 1. Continue routine postoperative care. 2. Encourage ambulation and incentive spirometer use 3. Continue oral pain medication 4. Anticipate discharge home postoperative day #3 or #4
[2018-08-28] MEDS: ENOXAPARIN NA (PORCINE) 40 MG/0.4 ML DISP.SYRIN SQ SCH (09:12)
[2018-08-28] MEDS: IBUPROFEN 600 MG TABLET (FP) PO PRN ×2 (09:13→21:41)
[2018-08-28] MEDS: NIFEdipine E.R. 30 MG TABLET (FP) PO SCH (09:41)
[2018-08-28] MEDS ORDERED: SENNOSIDES/DOCUSATE COMBO (SENNA PLUS) TABLET (UD) PO PRN (22:00)
--- NOTE | 2018-08-29 07:46 | PN ---
Progress Note (short form) - Note Progress Note: pod 3, s/p c/s doing well, no c/o ,no headache Last Vital Signs Temp Pulse Resp BP Pulse Ox 98.4 F 64 18 129/73 100 08/29/18 01:00 08/29/18 05:00 08/29/18 05:00 08/29/18 05:00 08/26/18 11:15 Last Vital Signs Temp Pulse Resp BP Pulse Ox 98.4 F 64 18 129/73 100 08/29/18 01:00 08/29/18 05:00 08/29/18 05:00 08/29/18 05:00 08/26/18 11:15 CBC, BMP 08/27/18 07:10 08/27/18 07:10 abdomen soft, no distension, no cva incision dry, clean , healing, no calf tenderness impression doing well, no c/po, wants to go home today instruction given
--- NOTE | 2018-08-29 07:49 | DS ---
Physical Exam-SALESPERSON DRIVER Vital Signs: Vital Signs Temperature 98.4 F 08/29/18 01:00 Pulse Rate 64 08/29/18 05:00 Respiratory Rate 18 08/29/18 05:00 Blood Pressure 129/73 08/29/18 05:00 O2 Sat by Pulse Oximetry (%) 100 08/26/18 11:15 Constitutional: Yes: Well Nourished, No Distress, Calm Eyes: Yes: WNL, Conjunctiva Clear, EOM Intact HENT: Yes: WNL, Atraumatic, Normocephalic Neck: Yes: WNL, Supple, Trachea Midline Cardiovascular: Yes: WNL, Regular Rate and Rhythm Respiratory: Yes: WNL, Regular, CTA Bilaterally Gastrointestinal: Yes: WNL ...Rectal Exam: Yes: WNL Renal/: Yes: WNL ....Post : Yes: Uterus firm, Uterus non-tender, Slight lochia rubra Breast(s): Yes: WNL Musculoskeletal: Yes: WNL Extremities: Yes: WNL Edema: No Integumentary: Yes: WNL Wound/Incision: Yes: Clean/Dry, Well Approximated, Sutures Intact, Steri Strips Neurological: Yes: WNL, Alert, Oriented ...Motor Strength: WNL Psychiatric: Yes: WNL, Alert, Oriented Labs: CBC, BMP 08/27/18 07:10 08/27/18 07:10 Delivery - Delivery Section: Primary, Low Flap Transverse Type of Anesthesia: Epidural Episiotomy/Laceration: None EBL (cc): 600 Delivery, Single - Stages of Labor Date 1st Stage Initiatied: 08/26/18 Time 1st Stage Initiated: 03:00 Date 2nd Stage Initiated: 08/26/18 Date of Delivery: 08/26/18 Time of Delivery: 11:50 Time Placenta Delivered: 11:52 Placenta: Yes: Expressed - Condition of Infant Hemodialysis Lab Technician/Anesthesiologist Assistant Certified Present: Yes Name: Aron Jean Gender: Female Weight: 6 lb 3 oz Position: Left, OT Total Hours ROM (Hrs/Mins): 3 hours - 1 Minute Total Score: 8 5 Minutes Total Score: 1 - Sanderson Feeding Plan Initial Plan: Elected not to breastfeed exclusively throughout hospitalization Benefits of Exclusively reinforced: Yes Discharge Summary Reason For Visit: CERVIDIL INDUCTION Procedures: Principal: primary LSTc/s Hospital Course: no complication Condition: Good - Instructions Diet, Activity, Other Instructions: regular diet, follow up office 1 week, if fever, heavy bleeeding , headache call mD Disposition: HOME - Home Medications Comprehensive Discharge Medication List: Ambulatory Orders Pnv No.95/Ferrous Fum/Folic AC [ Vitamin Tablet] 1 each PO DAILY Ibuprofen [Motrin -] 600 mg PO QID #28 tablet 08/29/18
[2018-08-29 08:31] LABS: BASO % 0.6 % (0-2.0); EOS % 1.2 % (0-4.5); HEMOGLOBIN 10.4 GM/dL (10.7-15.3); LYMPH % 33.4 % (8-40); MCH 30.8 pg (25.7-33.7); MCHC 32.4 g/dl (32.0-36.0); MEAN CELL VOLUME 94.8 fl (80-96); MEAN PLT VOLUME 9.4 fl (7.5-11.1); MONO % 7.9 % (3.8-10.2); NEUT % 56.9 % (42.8-82.8); PLATELET COUNT 168 K/MM3 (134-434); RBC 3.37 M/mm3 (3.60-5.2); RDW 14.6 % (11.6-15.6)
[2018-08-29 09:22] VITALS: BP 129/88; PULSE 71; TEMP 98.5
[2018-08-29] MEDS: NIFEdipine E.R. 30 MG TABLET (FP) PO SCH (09:37)
[2018-08-29] MEDS: ENOXAPARIN NA (PORCINE) 40 MG/0.4 ML DISP.SYRIN SQ SCH (09:57)
[2018-08-29] MEDS: IBUPROFEN 600 MG TABLET (FP) PO PRN (10:01)
[2018-08-29] MEDS: ACETAMINOPHEN 325 MG TABLET (FP) PO PRN (10:01)
[2018-08-29] MEDS: SIMETHICONE 80 MG TAB.CHEW (FP) PO PRN (10:01)
--- NOTE | 2018-09-02 16:05 | PATH ---
Surgical Pathology Report Patient Name: VISHNU GUADARRAMA [facility]. Rec. 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 Specimen(s) Received PLACENTA Clinical History , 40.6 gestational weeks Final Diagnosis PLACENTA, DELIVERY: FOCALLY DISRUPTED THIRD TRIMESTER PLACENTA WITH INTERVILLOUS FIBRIN DEPOSITION, THREE VESSEL UMBILICAL CORD AND MECONIUM HISTIOCYTOSIS OF PLACENTAL MEMBRANES. Electronically Signed Aleksander Hubbard M.D. Gross Description The specimen is received fresh labeled placenta and is a 426 gram, 20.0 x 10.0 x 2.9 cm. placenta with attached membranes and umbilical cord. The attached membranes are wynn green, meconium stained, translucent with focal opacities and insert marginally. The umbilical cord measures 15 cm. in length and averages 1.3 cm. in diameter. The cord inserts eccentrically, 3 cm. to the nearest margin. No true knots or strictures are identified. Cut surface of the umbilical cord reveals 3 vessels. The surface is verde green, meconium stained with minimal fibrin deposition and appropriate caliber vessels. The maternal surface is red-brown with focal defects. Sectioning reveals red-brown, spongy parenchyma. No lesions are identified. News Gathering Technician sections are submitted in three cassettes as follows: 1- membrane rolls and umbilical cord; 2-3- full thickness sections of placenta. 09/01/[address] [facility]09/01/2018
== END 2018-08-29 15:55 | disposition home or self-care (01) | DRG 787 ==
LOC: JLDR 19:00 → J3W 08-26 15:49
PROVIDERS: ADMIT Obstetrics & Gynecology; ATTEND Obstetrics & Gynecology
PROC: 10D00Z1 Extraction of Products of Conception, Low, Open Approach (ICD-10-PCS; principal; 2018-08-26)
DX: O48.0 Post-term pregnancy (principal); O41.03X0 Oligohydramnios, third trimester, not applicable or unspecified; O13.4 Gestational [pregnancy-induced] hypertension without significant proteinuria, complicating childbirth; O75.89 Other specified complications of labor and delivery; O77.0 Labor and delivery complicated by meconium in amniotic fluid; E28.2 Polycystic ovarian syndrome; Z3A.40 40 weeks gestation of pregnancy; Z37.0 Single live birth
CPT/HCPCS: 36415; 36600; 80048; 80053; 80076; 81003; 81015; 82803; 83010; 84450; 84460; 84550; 85025; 85027; 85044; 85461; 85610; 85730; 86593; 86850; 86900; 86901; 86999; 87389; 88307-TC

== ENCOUNTER 2021-12-04 08:15 | Inpatient (IN) | payer OTHER ==
[2021-12-04] MEDS: ELECTROLYTE-148 SOLN 1,000 ML IV SCH ×2 (09:00→10:10)
[2021-12-04 09:17] VITALS: BMI 31.4
[2021-12-04] MEDS ORDERED: ACETAMINOPHEN 325 MG TABLET (FP) PO PRN ×2 (10:18→12:29)
[2021-12-04] MEDS ORDERED: ONDANSETRON 4 MG/2 ML VIAL IVPUSH PRN (10:18)
[2021-12-04] MEDS ORDERED: IBUPROFEN 600 MG TABLET (FP) PO PRN (10:19)
[2021-12-04] MEDS ORDERED: CITRIC ACID/SODIUM CITRATE 30 ML UNIT-DOSE CUP PO ONE (10:34)
[2021-12-04] MEDS ORDERED: morphine SULFATE/PF 1 MG/2 ML (2cc Syringe - QUVA) ONE (10:44)
[2021-12-04] MEDS ORDERED: ePHEDrine SULFATE 50 MG/1 ML AMPULE ONE (10:58)
[2021-12-04] MEDS: OXYTOCIN 20 UNITS in 0.9% NS 20 UNIT/1,000 ML INFUS.BAG IV SCH ×2 (12:20→20:33)
[2021-12-04] MEDS ORDERED: OXYTOCIN 20 UNITS in 0.9% NS 20 UNIT/1,000 ML INFUS.BAG IV ONE (12:22)
[2021-12-04] MEDS ORDERED: METHYLERGONOVINE MALEATE 0.2 MG/1 ML AMP IM PRN (12:29)
[2021-12-04] MEDS ORDERED: IBUPROFEN 800 MG/8 ML IJ IVPB PRN (12:29)
[2021-12-04] MEDS ORDERED: BENZOCAINE 28 GM HEMORRHOIDAL OINTMENT TP PRN (12:29)
[2021-12-04] MEDS ORDERED: WITCH HAZEL 50% (TUCKS) 40 PAD/JAR PAD TP PRN (12:29)
[2021-12-04] MEDS ORDERED: BENZOCAINE 20% 57 GM BOTTLE TP PRN (12:29)
[2021-12-04 13:50] LABS: CORD HCO3 23.8 mmHg (20-29); CORD PCO2 68.7 mmHg (30-78); CORD pH 7.157 (7.14-7.44)
[2021-12-04 13:54] LABS: CORD HCO3 23.5 mmHg (20-29); CORD PCO2 57.6 mmHg (30-78); CORD pH 7.228 (7.14-7.44)
[2021-12-04] MEDS: IBUPROFEN 800 MG/8 ML IJ IVPB PRN (20:32)
[2021-12-04] MEDS: SIMETHICONE 80 MG TAB.CHEW (FP) PO PRN (20:34)
[2021-12-05] MEDS ORDERED: oxyCODONE HCL 5 MG TABLET PO PRN (00:29)
[2021-12-05] MEDS: SIMETHICONE 80 MG TAB.CHEW (FP) PO PRN ×3 (06:12→20:34)
[2021-12-05] MEDS: IBUPROFEN 800 MG/8 ML IJ IVPB PRN (06:12)
[2021-12-05 08:34] LABS: BASO % 0.3 % (0-2.0); EOS % 0.3 % (0-4.5); HEMATOCRIT 37.3 % (32.4-45.2); HEMOGLOBIN 12.1 GM/dL (10.7-15.3); LYMPH % 20.8 % (8-40); MCH 30.1 pg (25.7-33.7); MCHC 32.5 g/dl (32.0-36.0); MEAN CELL VOLUME 92.7 fl (80-96); MEAN PLT VOLUME 8.9 fl (7.5-11.1); MONO % 8.6 % (3.8-10.2); PLATELET COUNT 223 10^3/uL (134-434); RBC 4.02 M/mm3 (3.60-5.2); RDW 14.4 % (11.6-15.6)
[2021-12-05] MEDS: PRENATAL VITAMINS W/ FOLIC ACID TABLET (FP) PO SCH (09:45)
[2021-12-05] MEDS: ENOXAPARIN NA (PORCINE) 40 MG/0.4 ML DISP.SYRIN SQ SCH (09:45)
[2021-12-05] MEDS ORDERED: BISACODYL 10 MG SUPP.RECT RC PRN (12:29)
[2021-12-05] MEDS: IBUPROFEN 600 MG TABLET (FP) PO PRN ×2 (17:30→20:35)
[2021-12-05] MEDS: SENNOSIDES/DOCUSATE COMBO (SENNA PLUS) TABLET (UD) PO PRN (20:35)
[2021-12-06] MEDS: oxyCODONE HCL 5 MG TABLET PO PRN ×2 (09:07→16:40)
[2021-12-06] MEDS: PRENATAL VITAMINS W/ FOLIC ACID TABLET (FP) PO SCH (09:07)
[2021-12-06] MEDS: SIMETHICONE 80 MG TAB.CHEW (FP) PO PRN ×3 (09:07→20:05)
[2021-12-06] MEDS: ENOXAPARIN NA (PORCINE) 40 MG/0.4 ML DISP.SYRIN SQ SCH (09:08)
[2021-12-06] MEDS: SENNOSIDES/DOCUSATE COMBO (SENNA PLUS) TABLET (UD) PO PRN (20:05)
[2021-12-06] MEDS: IBUPROFEN 600 MG TABLET (FP) PO PRN (21:30)
[2021-12-07] MEDS: SIMETHICONE 80 MG TAB.CHEW (FP) PO PRN (01:50)
[2021-12-07] MEDS: oxyCODONE HCL 5 MG TABLET PO PRN (01:51)
[2021-12-07 08:15] LABS: BASO % 0.4 % (0-2.0); EOS % 1.4 % (0-4.5); HEMATOCRIT 29.6 % (32.4-45.2); HEMOGLOBIN 9.9 GM/dL (10.7-15.3); LYMPH % 34.9 % (8-40); MCHC 33.5 g/dl (32.0-36.0); MEAN CELL VOLUME 92.6 fl (80-96); MEAN PLT VOLUME 8.5 fl (7.5-11.1); MONO % 8.7 % (3.8-10.2); NEUT % 54.6 % (42.8-82.8); PLATELET COUNT 210 10^3/uL (134-434); RDW 14.3 % (11.6-15.6); WHITE BLOOD COUNT 6.5 K/mm3 (4.0-10.0)
[2021-12-07] MEDS: PRENATAL VITAMINS W/ FOLIC ACID TABLET (FP) PO SCH (09:30)
[2021-12-07] MEDS: ENOXAPARIN NA (PORCINE) 40 MG/0.4 ML DISP.SYRIN SQ SCH (09:30)
[2021-12-07] MEDS: IBUPROFEN 600 MG TABLET (FP) PO PRN (09:30)
[2021-12-07 10:27] VITALS: BP 132/79; PULSE 82; TEMP 98.3
== END 2021-12-07 12:55 | disposition home or self-care (01) | DRG 788 ==
LOC: JLDR 08:15 → J3W 13:45
PROVIDERS: ADMIT Obstetrics & Gynecology; ATTEND Obstetrics & Gynecology
PROC: 10D00Z1 Extraction of Products of Conception, Low, Open Approach (ICD-10-PCS; principal; 2021-12-04)
DX: O34.219 Maternal care for unspecified type scar from previous cesarean delivery (principal); Z3A.39 39 weeks gestation of pregnancy; Z37.0 Single live birth
CPT/HCPCS: 36415; 36600; 82803; 85025; 85461; 86999; 88307-TC